=== PATIENT | female | born 2000 | race Caucasian/White ===

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

== ENCOUNTER 2022-02-17 22:51 | Emergency (ER) | payer OTHER ==
[~2022-02-17] VITALS: Ht 155 cm; Wt 53.5 kg
[2022-02-17 23:00] VITALS: BP 126/74
[2022-02-17] MEDS ORDERED: RX-MUPIROCIN (BACTROBAN) 2% OINT 22 GM TUBE TOP STA (23:12)
--- NOTE | 2022-02-17 23:12 | ED Upper Extremity ---
General Chief Complaint: Laceration Stated Complaint: R HAND LAC Source: patient History of Present Illness Date Seen by Provider: Feb 17, 2022 Time Seen by Provider: 23:02 Initial Comments PT ARRIVES VIA POV FROM WORK AT [employer] PT CUT HER RIGHT HAND ON A PIECE OF TIN FOIL PACKAGING AROUND 2000 TONIGHT NO PARESTHESIAS OR MOTOR DEFICITS NO PRIOR INJURY TO THIS HAND PT IS RIGHT HANDED LAST TETANUS IS UNKNOWN PCP: WILLIAN HEALY LOVE AT [facility] Allergies and Home Medications Allergies Coded Allergies: No Known Drug Allergies (Unverified , 11/05/20) Patient Home Medication List Home Medication List Reviewed: Yes Review of Systems Constitutional: no symptoms reported Musculoskeletal: see HPI Skin: see HPI Psychiatric/Neurological: No Symptoms Reported Past Jnelotp-Nqwmis-Hulneq Hx Immunizations Up To Date Tetanus Booster (TDap): Unknown PED Vaccines UTD: Yes Seasonal Allergies Seasonal Allergies: No Past Medical History Surgeries: No Respiratory: No Cardiac: Yes Heart Murmur, Palpitations Neurological: Yes Vertigo Reproductive Disorders: No Female Reproductive Disorders: Denies Genitourinary: No Gastrointestinal: No Musculoskeletal: No Endocrine: No HEENT: No Cancer: No Psychosocial: No Integumentary: No Blood Disorders: No Physical Exam Vital Signs Vital Signs - First Documented 02/17/22 23:00 Temp 36.7 Pulse 79 Resp 20 B/P (MAP) 126/74 (91) Pulse Ox 99 Capillary Refill : Height, Weight, BMI Height: '" Weight: lbs. oz. kg; 20.00 BMI Method: General Appearance: WD/WN, no apparent distress, other (ANXIOUS) Hand: Right (DORSAL ASPECT OF RIGHT HAND AT 5TH MCP JOINT AREA, WITH 1 CM SUPERFICIAL LACERATION, NO BLEEDING, NO GAPING. MOTOR/SENSORY/VASCULAR INTACT. 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, no motor/sensory deficits, alert, oriented x 3 Skin: normal color, warm/dry, tattoos/piercings Procedures/Interventions Splinting and Joint Reduction : Splint Application: Finger Progress/Results/Core Measures Results/Orders My Orders Orders - LATOYA SHORT DO Dipht,Pertuss(Acell),Tet Adult (Boostrix (02/17/22 23:15) Wound Dressing-Ed (02/17/22 23:06) Ed Ortho/Other Supplies Order (02/17/22 23:12) Rx-Mupirocin 2% Oint (Rx-Bactroban) (02/17/22 23:12) Medications Given in ED Current Medications Medications Dose Ordered Sig/Claudio Route Start Time Stop Time Status Last Admin Dose Admin Diphtheria/ Tetanus/Acell Pertussis 0.5 ml ONCE ONCE IM 02/17/22 23:15 02/17/22 23:16 DC 02/17/22 23:30 0.5 ML Vital Signs/I&O 02/17/22 23:00 Temp 36.7 Pulse 79 Resp 20 B/P (MAP) 126/74 (91) Pulse Ox 99 Progress Progress Note : Progress Note WOUND IS SUPERFICIAL, NOT GAPING AND NOT BLEEDING NO REPAIR REQUIRED. SPLINT APPLIED TO HELP WITH HEALING WOUND CLEANSED AND DRESSED DPT VACCINE GIVEN Departure Impression Primary Impression: Laceration of right hand Additional Impression: Ddspwrptzl-hweghcdmo-xcjlevy (DPT) vaccination administered at current visit Disposition: HOME, SELF-CARE Condition: Stable Departure-Patient Inst. Decision time for Depature: 23:17 Referrals: NO,LOCAL PHYSICIAN (PCP) Primary Care Physician Patient Instructions: Diphtheria and Tetanus Toxoids, and Acellular Pertussis Vaccine, Wound Care (DC) Add. Discharge Instructions: CLEAN WOUND TWICE A DAY WITH ANTIBACTERIAL SOAP AND WATER, APPLY ANTIBIOTIC AND FRESH DRESSING TWICE A DAY WEAR SPLINT X 1 WEEK TYLENOL AND MOTRIN NEEDED FOR PAIN FOLLOW UP WITH [facility] FOR FURTHER CARE--CALL IN THE MORNING TO [facility] AN APPOINTMENT All discharge instructions reviewed with patient and/or family. Voiced understa nding. Work/School Note: Work Release Form Date Seen in the Emergency Department: Feb 17, 2022 Return to Work: Feb 18, 2022 Restrictions: Follow Up With [facility] Other Restrictions Listed Below: KEEP WOUND CLEAN AND DRY WEAR SPLINT AT ALL TIMES X 1 WEEK Images Extremities-Upper 1 - Laceration LATOYA SHORT DO Feb 17, 2022 23:12
[2022-02-17] MEDS ORDERED: TETANUS,DIPTH,PERTUSS P/F (BOOSTRIX) 0.5 ML VIAL IM ONE (23:15)
== END 2022-02-17 23:37 | disposition home or self-care (01) ==
LOC: EDUNIT# 22:51 → ER 22:55
DX: S61.411A Laceration without foreign body of right hand, initial encounter (principal); Z28.310 Unvaccinated for COVID-19; Z23 Encounter for immunization; W26.8XXA Contact with other sharp object(s), not elsewhere classified, initial encounter; Y99.0 Civilian activity done for income or pay; Y92.511 Restaurant or cafe as the place of occurrence of the external cause
CPT/HCPCS: 29130; 90715

== ENCOUNTER 2022-06-25 20:38 | Emergency (ER) | payer SELFPAY ==
[~2022-06-25] VITALS: Ht 155 cm; Wt 48.0 kg
[2022-06-25 20:54] VITALS: BP 121/78
--- NOTE | 2022-06-25 21:16 | Diagnostic Imaging Report ---
INDICATION: Right hand pain, punched desk. TECHNIQUE: Three views of the right hand. CORRELATION STUDY: None. FINDINGS: Findings are positive for relatively nondisplaced fracture at the base of the 5th metacarpal. Likely intra-articular extension. Remaining osseous structures are otherwise intact and unremarkable. Mild soft tissue edema along the ulnar aspect of the hand. IMPRESSION: Positive for what appears to be a nondisplaced fracture at the articular base of 5th metacarpal. Correlation with symptoms recommended. Dictated by: Dictated on workstation # [id number]
--- NOTE | 2022-06-25 21:17 | ED Upper Extremity ---
General Chief Complaint: Upper Extremity Stated Complaint: RIGHT HAND INJURY Nursing Triage Note: RIGHT HAND PAIN, PUNCHED DESK APPROX. 1900 Source: patient Exam Limitations: no limitations History of Present Illness Date Seen by Provider: Jun 25, 2022 Time Seen by Provider: 21:14 Initial Comments Patient is a 21-year-old female presents ED with right hand injury. Patient states she was at work this evening when she swung her right hand hitting a desk. This occurred around 7 PM this evening. She reports pain to the right proximal little finger and base of 5th metacarpal. Pain with movement. She reports swelling. Denies taking anything for pain. No history of previous fracture. Allergies and Home Medications Allergies Coded Allergies: No Known Drug Allergies (Unverified , 11/05/20) Patient Home Medication List Home Medication List Reviewed: Yes Hydrocodone/Acetaminophen (Hydrocodone-Acetamin 5-325 mg) 5 Mg-325 Mg Tablet, 1 TAB PO Q4H PRN for PAIN-MODERATE (5-7) Prescribed by: DOLORES TREVIZO on 06/25/222135 Review of Systems Constitutional: No chills EENTM: No ear pain, No blurred vision, No double vision, No mouth pain, No mouth swelling, No throat pain, No throat swelling Respiratory: No cough Cardiovascular: No chest pain Gastrointestinal: No abdominal pain, No diarrhea, No nausea, No vomiting Genitourinary: No decreased output, No discharge Musculoskeletal: joint pain, joint swelling Skin: change in color All Other Systems Reviewed Negative Unless Noted: Yes Past Lvzqfkt-Btpydk-Ubfuml Hx Patient Social History Tobacco Use?: No Substance use?: No Alcohol Use?: No Pt feels they are or have been: No Immunizations Up To Date Tetanus Booster (TDap): Unknown PED Vaccines UTD: Yes First/Initial COVID19 Vaccinat: NA Seasonal Allergies Seasonal Allergies: No Past Medical History Surgery/Hospitalization HX: DENIES Surgeries: No Respiratory: No Cardiac: Yes Heart Murmur, Palpitations Neurological: Yes Vertigo Last Menstrual Period: May 26, 2022 Reproductive Disorders: No Female Reproductive Disorders: Denies Genitourinary: No Gastrointestinal: No Musculoskeletal: No Endocrine: No HEENT: No Cancer: No Psychosocial: No Integumentary: No Blood Disorders: No Physical Exam Vital Signs Vital Signs - First Documented 06/25/22 20:54 Temp 36.6 Pulse 60 Resp 16 B/P (MAP) 121/78 (92) Pulse Ox 100 O2 Delivery Room Air Capillary Refill : Less Than 3 Seconds Height, Weight, BMI Height: '" Weight: lbs. oz. kg; 19.00 BMI Method: General Appearance: WD/WN, no apparent distress HEENT: PERRL/EOMI, normal ENT inspection, TMs normal, pharynx normal Neck: non-tender, full range of motion, supple, normal inspection Cardiovascular: regular rate, rhythm, no edema, no gallop, no JVD Respiratory: chest non-tender, lungs clear, normal breath sounds, no respiratory distress Gastrointestinal: normal bowel sounds, non tender, soft, no organomegaly Back: normal inspection, no CVA tenderness Elbow/Forearm: normal inspection, non-tender, no evidence of injury Wrist: Yes normal inspection, Yes non-tender, Yes no evidence of injury Hand: Right, bone tenderness (Right fifth MCP joint.), swelling Neurologic/Tendon: normal sensation, normal motor functions, normal tendon functions 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 Pre and post neurovascular intact. Ortho- Glass 3 inch. No fracture reduction needed. Pre-Procedure NV Exam: Yes post joint reduction film: no reduction needed Arm Sling: Medium Hand-Made Type: orthoglass Splint Application: Short Arm Progress/Results/Core Measures Results/Orders My Orders Orders - SABA PARK Hand, Right, 3 Views (06/25/22 20:59) Ibuprofen Tablet (Motrin Tablet) (06/25/22 21:15) Medications Given in ED Current Medications Medications Dose Ordered Sig/Claudio Route Start Time Stop Time Status Last Admin Dose Admin Ibuprofen 600 mg ONCE ONCE PO 06/25/22 21:15 06/25/22 21:16 DC 06/25/22 21:25 600 MG Vital Signs/I&O 06/25/22 20:54 Temp 36.6 Pulse 60 Resp 16 B/P (MAP) 121/78 (92) Pulse Ox 100 O2 Delivery Room Air Blood Pressure Mean: 92 Departure Communication (PCP) X-ray is concerning for a nondisplaced fracture at the articular base of the fifth metacarpal. She does have point tenderness to the location as well as the head of the fifth MCP joint. Neurovascular intact. Swelling noted. No joint reduction needed. Patient was placed in a ulnar gutter splint. Orthopedic follow-up in 7 days. Was given a dose of ibuprofen here. Will discharge with hydrocodone to take for breakthrough pain. Do not operate machinery or work with narcotic. Recommend a regular schedule of ibuprofen. Provided sling. Return precaution were discussed. Positive for what appears to be a nondisplaced fracture at the articular base of 5th metacarpal. Impression Primary Impression: Closed fracture of 5th metacarpal Disposition: 01 HOME, SELF-CARE Condition: Stable Departure-Patient Inst. Decision time for Depature: 21:33 Referrals: SAMAN LOVE (PCP) Primary Care Physician GIL CHADWICK MD Patient Instructions: Hand Fracture ED Add. Discharge Instructions: Recommend not getting the splint wet. Follow-up with orthopedic in 7 days for further evaluation. Provided number and discharge instructions. Recommend anti-inflammatories to help with pain and swelling. Hydrocodone for breakthrough pain and is only to take at home and not at work or operating machinery. All discharge instructions reviewed with patient and/or family. Voiced understanding. Scripts Hydrocodone/Acetaminophen (Hydrocodone-Acetamin 5-325 mg) 5 Mg-325 Mg Tablet 1 TAB PO Q4H PRN for PAIN-MODERATE (5-7), #8 TAB Prov: SABA PARK 06/25/22 SABA PARK Jun 25, 2022 21:17
[2022-06-25] MEDS: IBUPROFEN 600 MG (MOTRIN) TAB PO ONE (21:25)
[2022-06-25] MEDS ORDERED: ACHD5005 PO (21:35)
== END 2022-06-25 21:48 | disposition home or self-care (01) ==
LOC: EDUNIT# 20:38 → ER 20:41
DX: S62.346A Nondisplaced fracture of base of fifth metacarpal bone, right hand, initial encounter for closed fracture (principal); Z28.310 Unvaccinated for COVID-19; Y04.8XXA Assault by other bodily force, initial encounter; Y92.59 Other trade areas as the place of occurrence of the external cause; Y99.0 Civilian activity done for income or pay
CPT/HCPCS: 29125; 73130